=== PATIENT | male | born 1990 | race African-American/Black ===

== ENCOUNTER 2022-03-19 03:37 | Emergency (ER) | payer MEDICAID, OTHER ==
[~2022-03-19] VITALS: Ht 193 cm; Wt 109.0 kg
[2022-03-19] MEDS ORDERED: ALBU6.7H3 INH (07:20)
[2022-03-19] MEDS ORDERED: ALBUTEROL (0.083%) 2.5MG/3ML NEB HHN ONE (07:30)
[2022-03-19] MEDS ORDERED: PREDNISONE 20MG TABLET PO ONE (07:30)
[2022-03-19] MEDS ORDERED: P20 MT (09:27)
[2022-03-19 09:52] VITALS: BP 112/65
== END 2022-03-19 09:54 | disposition home or self-care (01) ==
LOC: ER 03:37
DX: J45.901 Unspecified asthma with (acute) exacerbation (principal); J06.9 Acute upper respiratory infection, unspecified
CPT/HCPCS: 93005; 94640; 99283; J7512; Z7610

== ENCOUNTER 2022-03-24 07:44 | Emergency (ER) | payer OTHER, BC ==
[~2022-03-24] VITALS: Ht 185.4 cm; Wt 109.0 kg
[~2022-03-24 07:44] MED LIST: ALBU6.7H3 INH; P20 MT
[2022-03-24] MEDS ORDERED: PREDNISONE 20MG TABLET PO STA (13:39)
[2022-03-24] MEDS ORDERED: IPRATROPIUM BROMIDE (0.02%) 0.5MG/2.5ML NEB HHN STA (13:39)
[2022-03-24] MEDS ORDERED: ALBUTEROL (0.083%) 2.5MG/3ML NEB HHN STA (13:39)
[2022-03-24] MEDS ORDERED: P20 MT (15:08)
[2022-03-24] MEDS ORDERED: FLUT1BLS INH (15:08)
[2022-03-24] MEDS ORDERED: ALBU6.7H15 INH (15:08)
[2022-03-24 15:22] VITALS: BP 114/64
== END 2022-03-24 15:25 | disposition home or self-care (01) ==
LOC: ER 07:53
DX: J45.901 Unspecified asthma with (acute) exacerbation (principal); Z76.0 Encounter for issue of repeat prescription
CPT/HCPCS: 71045; 93005; 94644; 99285; J7512; Z7610; 94640

== ENCOUNTER 2022-03-26 08:07 | Emergency (ER) | payer OTHER, BC ==
[~2022-03-26] VITALS: Ht 185.4 cm; Wt 81.0 kg
[~2022-03-26 08:07] MED LIST changes: +ALBU6.7H15 INH; +FLUT1BLS INH
[2022-03-26 08:14] VITALS: BP 147/90
[2022-03-26] MEDS ORDERED: FLUT1BLS9 IH (09:15)
== END 2022-03-26 09:50 | disposition home or self-care (01) ==
LOC: ER 08:07
DX: J45.909 Unspecified asthma, uncomplicated (principal); Z76.0 Encounter for issue of repeat prescription
CPT/HCPCS: 99283